=== PATIENT | female | born 1935 | race African-American/Black ===

== ENCOUNTER 2016-07-25 21:38 | Emergency (ER) | payer MEDICARE, BC ==
--- NOTE | ~2016-07-25 | EKG ---
PATIENT: JUAN R JUAREZ UNIT #: [id number] Ventricular Rate: 58 BPM Atrial Rate: 58 BPM P-R Interval: 206 ms QRS Duration: 156 ms Q-T Interval: 472 ms QTC Calculation(Bezet): 463 ms P [place]: 33 degrees Calculated R [place]: -14 degrees Calculated T [place]: 128 degrees Diagnosis Line: Sinus bradycardia Diagnosis Line: Possible Left atrial enlargement Diagnosis Line: Left bundle branch block Diagnosis Line: Abnormal ECG Diagnosis Line: When compared with ECG of 23-OCT-2015 23:56, Diagnosis Line: OH interval has decreased Diagnosis Line: Confirmed by ENRIQUE ALCALA MD ([id number]) on 07/31/2016 Diagnosis Line: 10:20:21 PM INTERPRETING MD: CARI PICKENS
--- NOTE | ~2016-07-25 | CT17 ---
[facility] A Service of [facility] RADIOLOGY TEXT RESULTS PATIENT: JUAN R JUAREZ LOCATION: [facility] : 36 UNIT #: [id number] AGE: [address]: Christa Paula MD SEX: F ORDER DR: [id number] [facility] [address] [place], [place] [address] [id number] E MR#: [id number] Acc #: [id number] NAME: JUAN R JUAREZ : 1935 SEX: F STUDY DATE/TIME: 07/25/2016 21:20 UNIT: [facility] ROOM: STUDY DESCRIPTION: CT Angio Head Attending Physician: Christa Paula M.D. Ordering Physician: Jaiden Haynes M.D. Primary Care Physician: Marguerite Damico M.D. MEDICAL IMAGING REPORT This report is preliminary unless electronic signature is present EXAM CT angiogram head and neck with IV contrast, 07/25/2016 HISTORY Numbness in right face and headache for [address] exam was performed with one or more of the following radiation dose reduction techniques: automatic exposure control, adjustment of mA and/or kV according to patient size, and iterative reconstruction. FINDINGS IV contrast-enhanced CT angiogram head and neck was performed with 3-D reconstructions. CT ANGIOGRAM NECK: The common carotid arteries and carotid bulbs and cervical internal carotid arteries are widely patent bilaterally with no stenosis by NASCET criteria. Both vertebral arteries are widely patent and are codominant. CT ANGIOGRAM BRAIN: The intracranial vertebral arteries and basilar artery are widely patent. Mild calcified atherosclerotic plaque in the left cavernous carotid artery but no significant intracranial ICA stenosis. The anterior cerebral, middle cerebral and posterior cerebral arteries are patent bilaterally with no focal stenosis or occlusion. No aneurysm or vascular malformation is identified. Very small right posterior communicating artery. IMPRESSION 1. Normal CT angiogram of the head and neck. 2. No carotid artery stenosis. 3. No intracranial arterial stenosis or occlusion. [facility] A Service [facility] RADIOLOGY TEXT RESULTS PATIENT: JUAN R JUAREZ LOCATION: [facility] : 36 UNIT #: [id number] AGE: [address]: Christa Paula MD SEX: F ORDER DR: Dictated by... Steve Patterson M.D. THIS IS AN ELECTRONICALLY VERIFIED REPORT Steve Patterson M.D. at 07/26/2016 4:36 PM DFL/nestor TD: 07/26/2016 00:01 JOB #: [id number] MEDICAL IMAGING REPORT Page 1 of 1 COPY
--- NOTE | ~2016-07-25 | CT71 ---
[facility] A Service [facility] RADIOLOGY TEXT RESULTS PATIENT: JUAN R JUAREZ LOCATION: [facility] : 36 UNIT #: [id number] AGE: [address]: Christa Paula MD SEX: F ORDER DR: [id number] [facility] [address] [place], [place] [address] [id number] E MR#: [id number] Acc #: [id number] NAME: JUAN R JUAREZ : 1935 SEX: F STUDY DATE/TIME: 07/25/2016 21:14 UNIT: [facility] ROOM: STUDY DESCRIPTION: CT Head Wo Contrast Attending Physician: Christa Paula M.D. Ordering Physician: Jaiden Haynes M.D. Primary Care Physician: Marguerite Damico M.D. MEDICAL IMAGING REPORT This report is preliminary unless electronic signature is present EXAM CT brain without contrast, 07/25/2016 HISTORY Numbness in face and right side. Headache for [address] exam was performed with one or more of the following radiation dose reduction techniques: automatic exposure control, adjustment of mA and/or kV according to patient size, and iterative reconstruction. FINDINGS CT brain without contrast demonstrates no intracranial hemorrhage, mass or edema. No midline shift or ventricular dilatation or extraaxial fluid collection. 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 IMPRESSION 1. No acute findings. 2. 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 3. Incidental hyperostosis frontalis. Dictated by... Steve Patterson M.D. THIS IS AN ELECTRONICALLY VERIFIED REPORT Steve Patterson M.D. at 07/25/2016 11:29 PM DFL/nestor TD: 07/25/2016 23:16 [facility] A Service [facility] RADIOLOGY TEXT RESULTS PATIENT: JUAN R JUAREZ LOCATION: [facility] : 36 UNIT #: [id number] AGE: [address]: Christa Paula MD SEX: F ORDER DR: JOB #: [id number] MEDICAL IMAGING REPORT Page 1 of 1 COPY
[2016-07-25 20:14] LABS: BASOPHIL% 0.6 % (0-2.5); EOSINOPHIL# 0.1 X10e3 (0-0.7); EOSINOPHIL% 1.5 % (0.0-7.0); HEMATOCRIT 33.6 % (35.0-45.0); HEMOGLOBIN 10.8 gm/dL (12.0-16.0); LYMPHOCYTE# 2.2 X10e3 (1.0-3.5); LYMPHOCYTE% 30.6 % (17.0-45.0); MEAN CELL VOLUME 84.3 FL (83-96); MEAN PLATELET VOLUME 7.6 FL (6.5-11.5); MONOCYTE# 0.6 X10e3 (0-1.0); MONOCYTE% 8.5 % (3.0-12.0); NEUTROPHIL# 4.2 X10e3 (1.5-7.1); NEUTROPHIL% 58.8 % (40-75); PLATELET COUNT 209 X10e3 (140-420); RED BLOOD COUNT 3.99 X10e (3.90-5.30); RED CELL DISTRIBUTION WIDTH 14.3 % (11.0-15.5); WHITE BLOOD COUNT 7.1 X10e3 (4.0-10.5)
[2016-07-25 20:42] LABS: DIFF IND NO
[2016-07-25 20:44] LABS: GLOM FILT RATE Estimated 61.6 mL/min (>60); POTASSIUM 3.5 mmol/L (3.5-5.1)
[2016-07-25 21:10] LABS: PROTHROMBIN TIME (PATIENT) 10.8 SECONDS (9.6-11.5)
[2016-07-25 21:27] LABS: POC - CKMB 1.3 ng/mL (0.0-7.9); POC - TROPONIN <0.05 ng/mL (<=0.05)
[~2016-07-25 21:38] MED LIST: ADALATCC PO; AMBIEN12.5 M1 PO; ASPIRIN PO; ATENOLOL PO; BENICAR HCT 40-1 TAB PO; BENTYL10 MG DOB; BENTYL20 MG PO; BYSTOLIC PO; BYSTOLIC5 MG PO; CALCIUM + VITAM1 TAB PO; CALCIUM 500 + D1 TAB PO; CENTRUM SILVER PO; COD LIVER OIL; DIOVAN HCT 160/1 TAB PO; DIOVAN HCT 80/11 TAB PO; FISH OIL 1,0001 CAP PO; FISH OIL EC 1,1 EACH PO; GARLIC1 CAP PO; GARLIC1000 MG PO; GLUCOSAMINE; KCL PO; LORTAB 2.5/5001 TAB PO; METAMUCIL; NAPROSYN375 MG PO; NIFEDIPINE XR PO; ONE DAILY MULTI1 TA3 PO; OTC NASAL SPRAY; PANTOPRAZOLE SO40 MG PO; PHENERGAN25 MG PO; PRAVASTATIN SOD40 MG PO; PROCARDIA XL PO; PROTONIX PO; SKELAXIN PO; UNKNOWN BP MED; VICODIN 5/500 T1 TAB PO; [UNRECOGNIZED DRUG - REMARK]
[2016-07-25 21:40] LABS: URINE SOURCE CLEAN CATCH
[2016-07-25 22:31] LABS: URINE APPEARANCE CLEAR; URINE BILIRUBIN NEG (NEG); URINE BLOOD NEG (NEG); URINE COLOR YELLOW; URINE GLUCOSE NEG (NEG); URINE KETONE NEG (NEG); URINE LEUKOCYTE ESTERASE 1+ (NEG); URINE NITRATE NEG (NEG); URINE PH 6.5 (5-8); URINE PROTEIN NEG (NEG); URINE SPECIFIC GRAVITY 1.006 (1.003-1.035); URINE UROBILINOGEN 0.2 MG/DL (NEG)
[2016-07-25 22:35] LABS: URBCS1 AUWI 0-2 /[HPF] (0-2); URINE BACTERIA AUWI NEG (NEGATIVE); URINE SQUAMOUS EPITHELIAL CELL NONE SEEN /[HPF]
[2016-07-25 22:41] LABS: CULTURE INDICATED? NO
== END 2016-07-25 23:55 | disposition home or self-care (01) ==
LOC: CED 21:38
PROVIDERS: Emergency Medicine
DX: R20.9 Unspecified disturbances of skin sensation (principal)
CPT/HCPCS: 36415; 70450; 70496; 70498; 80048; 81003; 82553; 84484; 85025; 85610; 85652; 85730; 86140; 93005; 99284; Q9967

== ENCOUNTER → 2016-11-12 | Outpatient (CLI) | payer MEDICARE, BC ==
--- NOTE | ~2016-11-12 | CT4 ---
[facility] A Service of [facility] RADIOLOGY TEXT RESULTS PATIENT: JUAN R JUAREZ [facility] UNIT #: [id number] AGE: [address]: CHANTELLE LAM MD SEX: F ORDER DR: [id number] [facility] [address] [place], [place] [address] [id number] O MR#: [id number] Acc #: [id number] NAME: JUAN R JUAREZ : 1935 SEX: F STUDY DATE/TIME: 11/12/2016 11:49 UNIT: CCAT ROOM: STUDY DESCRIPTION: CT Abd and Pelv Wo Cont Attending Physician: Chantelle Lam M.D. Referring Physician: Chantelle Lam M.D. Ordering Physician: Chantelle Lam M.D. Primary Care Physician: Chantelle Lam M.D. MEDICAL IMAGING REPORT This report is preliminary unless electronic signature is present EXAM CT abdomen and pelvis without contrast, 11/12/2016 1149 hours CLINICAL HISTORY 81-year-old woman with right lower quadrant abdominal pain and tenderness for 1 week. COMPARISON 01/10/2016 TECHNIQUE Helical noncontrasted images were obtained from the lung bases through the pubic symphysis. Sagittal and coronal reconstructions were performed. No oral or intravenous contrast was administered. Total exam DLP 885 mGy-cm. This CT exam was performed with one or more of the following radiation dose reduction techniques: Automatic exposure control, adjustment of mA and/or kV according to patient size, and iterative reconstruction. FINDINGS Images through the lung bases are unchanged. There is stable linear areas of scarring. No effusions. Noncontrasted images through the abdomen demonstrate a normal appearance to the liver, spleen, pancreas and bile ducts. The gallbladder is somewhat contracted. There appear to be a few punctate stones in the gallbladder without wall thickening. There is no dilatation of the common bile duct. The adrenal glands are normal. Kidneys are remarkable for an exophytic lesion from the anterior mid-right kidney measuring 3.3 cm, previously 3.6 cm. This has a small molly of calcification in its wall but was nonenhancing previously and is likely benign. The abdominal aorta is normal in caliber. There is no adenopathy [facility] Service of [facility] RADIOLOGY TEXT RESULTS PATIENT: JUAN R JUAREZ LOCATION: [facility] : 36 UNIT #: [id number] AGE: [address]: CHANTELLE LAM MD SEX: F ORDER DR: or ascites. Stomach is nondistended but appears normal. There is no small bowel distension or small bowel wall thickening. The terminal ileum and appendix are normal. There is no distension or wall thickening in the colon. CT pelvis demonstrates a retroverted uterus. There is no adnexal mass or pelvic free fluid. The bladder appears normal. Bone window images demonstrate no acute fracture. 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 IMPRESSION 1. Negative noncontrasted CT of the abdomen and pelvis. No acute findings are seen. Specifically, the terminal ileum, cecum and appendix appear normal. 2. There is a cystic lesion extending from the anterior mid-right kidney, slightly decreased in size from 01/10/2016. 3. No renal or ureteral calculi. 4. The gallbladder may contain a small amount of sludge and a few punctate stones, not seen on the prior study, but no gallbladder wall thickening or bile duct dilatation is seen. COMMENT Findings were telephoned and discussed directly with Dr. Chantelle Lam at the time of this dictation, per request. Dictated by... Matilde Crews M.D. THIS IS AN ELECTRONICALLY VERIFIED REPORT Matilde Crews M.D. at 11/13/2016 9:11 AM SALOMÓN/meenakshi TD: 11/12/2016 20:41 JOB #: [id number] MEDICAL IMAGING REPORT Page 1 of 1 COPY
== END | disposition home or self-care (01) ==
LOC: CCAT 11:00
DX: R10.813 Right lower quadrant abdominal tenderness (principal); N28.1 Cyst of kidney, acquired
CPT/HCPCS: 74176

== ENCOUNTER → 2016-11-20 | Outpatient (CLI) | payer MEDICARE, BC ==
--- NOTE | ~2016-11-20 | MY29 ---
[facility] A Service [facility] RADIOLOGY TEXT RESULTS PATIENT: JUAN R JUAREZ LOCATION: [facility] : 36 UNIT #: [id number] AGE: [address]: CHANTELLE LAM MD SEX: F ORDER DR: [id number] [facility] [address] [place] [address] [place], [place] [address] [id number] O MR#: [id number] Acc #: [id number] NAME: JUAN R JUAREZ : 1935 SEX: F STUDY DATE/TIME: 11/20/2016 10:27 UNIT: [facility] ROOM: STUDY DESCRIPTION: MY ANU SCREENING W/ CAD BILAT Attending Physician: Chantelle Lam M.D. Referring Physician: Chantelle Lam M.D. Ordering Physician: Chantelle Lam M.D. Primary Care Physician: Chantelle Lam M.D. MEDICAL IMAGING REPORT This report is preliminary unless electronic signature is present EXAM Digital screening mammogram 11/20/2016 HISTORY 81-year-old woman no risk elevation. Previous bilateral breast biopsies. Annual screen. COMPARISON Mammograms date to 04/25/2009 with most recent 02/17/2015 followup right breast imaging 04/07/2015 with subsequent biopsies in 2016. FINDINGS Digital imaging of each breast was completed utilizing screening protocol. Single surgical skin marker is placed on the left breast. There are 3 skin markers placed on the right breast. Review includes FDA-approved CAD device. Breast parenchyma is predominantly fatty replaced. There is no interval occurring mass. There are no suspicious microcalcifications and no suspicious architectural deformity. There is a biopsy marker positioned at the site of a previous small cluster of microcalcifications in the right breast. IMPRESSION Negative mammogram. Annual screening recommended. Patients over the age of 40 are entered into a reminder system with target due date for the next mammogram. A result letter will also be sent to the patient. BIRADS: 1, negative. Dictated by... Frederic Perdomo M.D. [facility] A Service [facility] RADIOLOGY TEXT RESULTS PATIENT: JUAN R JUAREZ LOCATION: [facility] #: [id number] : 37 UNIT #: [id number] AGE: [address]: CHANTELLE LAM MD SEX: F ORDER DR: THIS IS AN ELECTRONICALLY VERIFIED REPORT Frederic Perdomo M.D. at 11/20/2016 3:51 PM CHASE/adolph TD: 11/20/2016 15:12 JOB #: [id number] MEDICAL IMAGING REPORT Page 1 of 1 COPY
== END | disposition home or self-care (01) ==
LOC: CWCC 10:04
DX: Z12.31 Encounter for screening mammogram for malignant neoplasm of breast (principal); Z98.890 Other specified postprocedural states
CPT/HCPCS: G0202

== ENCOUNTER 2016-11-26 19:45 | Emergency (ER) | payer MEDICARE, BC ==
[~2016-11-26] VITALS: Ht 165.1 cm; Wt 83.9 kg
[2016-11-26 21:15] LABS: BASOPHIL% 0.7 % (0-2.5); EOSINOPHIL# 0.1 X10e3 (0-0.7); EOSINOPHIL% 1.5 % (0.0-7.0); HEMATOCRIT 31.9 % (35.0-45.0); HEMOGLOBIN 10.4 gm/dL (12.0-16.0); LYMPHOCYTE# 1.5 X10e3 (1.0-3.5); LYMPHOCYTE% 31.3 % (17.0-45.0); MEAN CELL VOLUME 84.6 FL (83-96); MEAN CORPUSCULAR HEMOGLOBIN 27.5 PG (28-34); MEAN CORPUSCULAR HGB CONC 32.5 g/dL (30-36); MEAN PLATELET VOLUME 7.6 FL (6.5-11.5); MONOCYTE# 0.5 X10e3 (0-1.0); MONOCYTE% 10.2 % (3.0-12.0); NEUTROPHIL# 2.8 X10e3 (1.5-7.1); NEUTROPHIL% 56.3 % (40-75); PLATELET COUNT 190 X10e3 (140-420); RED BLOOD COUNT 3.78 X10e (3.90-5.30); RED CELL DISTRIBUTION WIDTH 14.3 % (11.0-15.5); WHITE BLOOD COUNT 4.9 X10e3 (4.0-10.5)
[2016-11-26 21:17] LABS: DIFF IND NO
[2016-11-26 21:38] LABS: ALBUMIN SERUM 3.7 g/dL (3.5-5.0); BILIRUBIN, DIRECT 0.1 mg/dL (0.0-0.2); BILIRUBIN,INDIRECT 0.8 mg/dL (0.0-0.9); BILIRUBIN,TOTAL 0.9 mg/dL (0.2-2.0); CALCIUM SERUM 8.7 mg/dL (8.4-10.2); GLOM FILT RATE Estimated 61.6 mL/min (>60); POTASSIUM 3.9 mmol/L (3.5-5.1); PROTEIN TOTAL SERUM 6.7 g/dL (6.0-8.3)
[2016-11-26 22:49] LABS: URINE SOURCE CLEAN CATCH
[2016-11-26 23:06] LABS: CULTURE INDICATED? NO; URBCS1 AUWI 0-2 /[HPF] (0-2); URINE APPEARANCE CLEAR; URINE BACTERIA AUWI NEG (NEGATIVE); URINE BILIRUBIN NEG (NEG); URINE BLOOD NEG (NEG); URINE COLOR YELLOW; URINE GLUCOSE NEG (NEG); URINE KETONE NEG (NEG); URINE LEUKOCYTE ESTERASE TRACE (NEG); URINE NITRATE NEG (NEG); URINE PH 7.5 (5-8); URINE PROTEIN NEG (NEG); URINE SPECIFIC GRAVITY 1.005 (1.003-1.035); URINE SQUAMOUS EPITHELIAL CELL NONE SEEN /[HPF]; URINE UROBILINOGEN 0.2 MG/DL (NEG); UWBCS1 AUWI 0-2 (0-5)
== END 2016-11-27 | disposition home or self-care (01) ==
LOC: CED 19:45
PROVIDERS: Emergency Medicine
DX: I10 Essential (primary) hypertension (principal); R51 Headache; R60.0 Localized edema; E78.5 Hyperlipidemia, unspecified; K21.9 Gastro-esophageal reflux disease without esophagitis; Z79.899 Other long term (current) drug therapy
CPT/HCPCS: 36415; 80048; 80076; 81003; 85025; 99283

== ENCOUNTER 2017-01-02 10:36 | Emergency (ER) | payer MEDICARE, BC ==
[~2017-01-02] VITALS: Ht 165.1 cm; Wt 83.9 kg
--- NOTE | ~2017-01-02 | EKG ---
PATIENT: JUAN R JUAREZ UNIT #: [id number] Ventricular Rate: 58 BPM Atrial Rate: 58 BPM P-R Interval: 228 ms QRS Duration: 158 ms Q-T Interval: 484 ms QTC Calculation(Bezet): 475 ms P [place]: 80 degrees Calculated R [place]: -56 degrees Calculated T [place]: 107 degrees Diagnosis Line: Sinus bradycardia with 1st degree A-V block with Diagnosis Line: occasional Premature ventricular complexes Diagnosis Line: Left axis deviation Diagnosis Line: Left bundle branch block Diagnosis Line: Abnormal ECG Diagnosis Line: No previous ECGs available Diagnosis Line: Confirmed by SARHTAK HILTON MD ([id number]) on Diagnosis Line: 01/04/2017 10:49:43 AM INTERPRETING MD: LIDA PICKENS
[2017-01-02 12:17] LABS: BASOPHIL% 0.9 % (0-2.5); EOSINOPHIL# 0.1 X10e3 (0-0.7); HEMATOCRIT 35.7 % (35.0-45.0); HEMOGLOBIN 11.9 gm/dL (12.0-16.0); LYMPHOCYTE# 1.4 X10e3 (1.0-3.5); LYMPHOCYTE% 31.8 % (17.0-45.0); MEAN CELL VOLUME 84.1 FL (83-96); MEAN CORPUSCULAR HGB CONC 33.2 g/dL (30-36); MONOCYTE# 0.4 X10e3 (0-1.0); MONOCYTE% 9.5 % (3.0-12.0); NEUTROPHIL# 2.5 X10e3 (1.5-7.1); NEUTROPHIL% 55.8 % (40-75); PLATELET COUNT 207 X10e3 (140-420); RED BLOOD COUNT 4.24 X10e (3.90-5.30); RED CELL DISTRIBUTION WIDTH 13.4 % (11.0-15.5); WHITE BLOOD COUNT 4.5 X10e3 (4.0-10.5)
[2017-01-02 12:30] LABS: DIFF IND NO
[2017-01-02 12:33] LABS: POC - CKMB 1.7 ng/mL (0.0-7.9); POC - TROPONIN 0.06 ng/mL (<=0.05)
[2017-01-02 12:45] LABS: BUN/CREATININE RATIO 12.72; CREATININE SERUM 1.1 mg/dL (0.6-1.4); GLOM FILT RATE Estimated 54.9 mL/min (>60); POTASSIUM 3.9 mmol/L (3.5-5.1)
[2017-01-02 13:46] LABS: POC - CKMB <1.0 ng/mL (0.0-7.9); POC - TROPONIN <0.05 ng/mL (<=0.05)
== END 2017-01-02 14:23 | disposition home or self-care (01) ==
LOC: CED 10:36
PROVIDERS: Emergency Medicine
DX: M54.12 Radiculopathy, cervical region (principal); I10 Essential (primary) hypertension; Z79.899 Other long term (current) drug therapy
CPT/HCPCS: 36415; 80048; 82553; 84484; 85025; 93005; 96374; 99283; J1885